=== PATIENT | male | born 1970 | race Caucasian/White ===

== ENCOUNTER 2019-03-24 05:00 | Emergency (ER) | payer OTHER ==
[2019-03-24] MEDS ORDERED: LORazepam 0.5 MG TABLET PO ONE (05:21)
[2019-03-24] MEDS ORDERED: LORazepam 2 MG/ML VIAL IV ONE (06:00)
--- NOTE | 2019-03-24 06:00 | ED Physician Documentation ---
General Adult - HISTORIAN Historian: patient - HPI Stated Complaint: panic attack Chief Complaint: General Adult Onset: minutes Timing: still present Severity: moderate Further Comments: yes (Pt is a 48 yo male with hx anxiety/depression/panic attacks. Pt had been on Effexor, but ran out after moving to this area in January. Pt states that he had been taking Effexor 150 mg, but has been taking someone else's Effexor 300 mg, but does not take it regularly. Pt appears restless and agitated on presentation. Pt was dropped off at ER by his fiance, who then "left him." Pt denies suicidality.) - ROS CONST: no problems EYES/ENT: none CVS/RESP: none GI/: none MS/SKIN/LYMPH: none NEURO/PSYCH: other (anxiety) - PAST HX Past History: other (anxiety/depression) Allergies/Adverse Reactions: Allergies Allergy/AdvReac Type Severity Reaction Status Date / Time No Known Allergies Allergy Verified 03/24/19 05:24 Home Medications: Ambulatory Orders Medication Instructions Recorded Bupropion HCl (Nf) [Wellbutrin Xl 1 tab PO DAILY 03/24/19 [24 Hour] (Nf)] Buspirone HCl [Buspar] 10 mg PO TID 03/24/19 Trazodone HCl [Desyrel] 1 tab PO HS 03/24/19 Venlafaxine HCl [Effexor Xr] 1 tab PO DAILY 03/24/19 - SOCIAL HX Smoking History: cigarettes Alcohol Use: occasionally Drug Use: marijuana - FAMILY HX Family History: No - VITAL SIGNS Vital Signs: Vital Signs Temp Pulse Resp BP Pulse Ox 96.9 F L 86 20 133/84 98 03/24/19 05:13 03/24/19 05:45 03/24/19 05:45 03/24/19 05:45 03/24/19 05:45 - REVIEWED ASSESSMENTS Nursing Assessment Reviewed: Yes Vitals Reviewed: Yes Progress - Progress Progress: Ativan 1 mg po Ativan 1 mg IV improved Pt was offered refill of Effexor, but did not want the refill. ED Results Lab/Radiology - Orders Orders: ED Orders Category Date Time Status LORazepam [Ativan] Med 03/24/19 05:21 Once 1 mg PO NOW ONE General Adult Physical Exam - PHYSICAL EXAM GENERAL APPEARANCE: moderate distress EENT: eye inspection normal, pharynx normal NECK: normal inspection, supple RESPIRATORY: no resp distress, chest non-tender, breath sounds normal CVS: reg rate & rhythm, heart sounds normal ABDOMEN: soft, no organomegaly, normal bowel sounds BACK: normal inspection, no CVA tenderness SKIN: warm/dry, normal color EXTREMITIES: non-tender, normal range of motion NEURO: oriented X3, motor nml, sensation nml, other (anxious) Discharge Clincal Impression: Anxiety Condition: Stable Disposition: 01 HOME, SELF-CARE Decision to Admit: NO Decision Time: 07:01
[2019-03-24 07:09] VITALS: BP 152/89
== END 2019-03-24 07:07 | disposition home or self-care (01) ==
LOC: ED 05:00
DX: F41.9 Anxiety disorder, unspecified (principal)
CPT/HCPCS: 96374; 99282; 99284; J2060; S1016

== ENCOUNTER 2019-03-24 11:20 | Emergency (ER) | payer OTHER ==
--- NOTE | 2019-03-24 11:38 | ED Physician Documentation ---
Psychological Disorders - HISTORIAN Historian: patient - HPI Chief Complaint: Psychological Disorder (Suicidal Ideation) Additional Information: 48 year old male was seen in the ER earlier this morning with sx's of anxiety/depression/panic attacks which he has a history of. Patient had been on Effexor, but ran out after moving to this area in January. He states that he had been taking Effexor 150 mg, but has been taking someone else's Effexor 300 mg, but does not take it regularly. He denied any suicidal ideation at first visit, however, patient is back now stating that he is suicidal and has a plan to go to [employer] and steal a bunch of pills and take them. He states that his girlfriend broke up with him and he has no job. Onset: minutes Duration: gradual onset Intent: suicide, prior thoughts of suicide Severity: mild Situational Problems: Yes Related To: other (girlfriend and job) - Associated Symptoms Symptoms: depressed Suicidal: specific plan Ingestion: wanted to "escape" - ROS CONST: none NEURO/PSYCH: none EYES/ENT: none CVS/RESP: none GI/: denies: nausea, vomiting MS/SKIN/LYMPH: denies: rash - PAST HX Psychiatric problems: depression, prior suicide attempt Immunizations: UTD Allergies/Adverse Reactions: Allergies Allergy/AdvReac Type Severity Reaction Status Date / Time No Known Allergies Allergy Verified 03/24/19 11:46 Home Medications: Ambulatory Orders Medication Instructions Recorded Bupropion HCl (Nf) [Wellbutrin Xl 1 tab PO DAILY 03/24/19 [24 Hour] (Nf)] Buspirone HCl [Buspar] 10 mg PO TID 03/24/19 Trazodone HCl [Desyrel] 1 tab PO HS 03/24/19 Venlafaxine HCl [Effexor Xr] 1 tab PO DAILY 03/24/19 - Social HX Smoking History: greater than 1 pack/day Marital Status: single Drug Use: marijuana - Family HX Family HX: denies: mental illness - VITAL SIGNS Vital Signs: Vital Signs Temp Pulse Resp BP Pulse Ox 97.9 F 71 16 149/91 98 03/24/19 11:20 03/24/19 11:20 03/24/19 11:20 03/24/19 11:20 03/24/19 11:20 - REVIEWED ASSESSMENTS Nursing Assessment Reviewed: Yes Vitals Reviewed: Yes Progress - Progress Progress: 11:38 [facility] has no beds 13:30 patient has been resting comfortably in the room; he has eaten lunch, has been cooperative with care. Flaker Operator is working on transfer. 13:36 Dr. Lujan at [facility] in [place] has accepted patient. ED Results Lab/Radiology - Orders Orders: ED Orders Category Date Time Status ALCOHOL MEDICAL USE ONLY Stat Lab 03/24/19 11:43 Received CBC/PLATELET/DIFF Routine Lab 03/24/19 11:43 Received CMP Routine Lab 03/24/19 11:43 Received TSH Stat Lab 03/24/19 11:43 Received EKG WITH COMPARISON Stat Ther 03/24/19 Completed Psych Physical Exam - Physical Exam General Appearance: no acute distress, alert ENT: nml ENT inspection, pharynx nml Eyes: PERRL, EOM's intact Mental Status: mood/affect nml Suicide Attempts: still contemplating Orientation: nml x3 Cranial Nerves: CN's intact as tested Sensory, Motor: nml motor response, nml sensory response, nml gait Neck/Back: normal inspection Respiratory: breath sounds normal CVS: heart sounds normal Abdomen: nml bowel sounds Skin: warm/dry, normal color Extremities: normal range of motion Discharge Clincal Impression: Depression with suicidal ideation Referrals: Primary Doctor,No [Primary Care Provider] - 2 Days Condition: Good Disposition: 65 XFER TO PSYCH HOSP/UNIT Decision to Admit: NO Decision Time: 13:38
[2019-03-24 15:27] VITALS: BP 147/88
== END 2019-03-24 15:20 ==
LOC: ED 11:20
DX: F32.9 Major depressive disorder, single episode, unspecified (principal); R45.851 Suicidal ideations
CPT/HCPCS: 80053; 80320; 84443; 85025; 93005; 99282; 99283; G0480